=== PATIENT | male | born 1945 | race Caucasian/White ===

== ENCOUNTER → 2016-06-18 | Outpatient (CLI) | payer OTHER ==
[~2016-06-18] MED LIST: AMLO-114 PO; ASCO10003 PO; ASPI81TA28 PO; CHOL1TAB46 PO; ENAL1TAB31 PO; FIBETAB2 PO; FINA5TAB PO; HYDR25TA4 PO; MULT-506 PO; POTA1TAB PO; TERA1CAP63 PO; VITA400C15 PO; ZNTT/150 PO
[2016-06-18 10:22] LABS: CHOLESTEROL/HDL RATIO 1.5
== END | disposition home or self-care (01) ==
LOC: C.LAB1850 08:42
PROVIDERS: ATTEND Internal Medicine
DX: I25.10 Atherosclerotic heart disease of native coronary artery without angina pectoris (principal)

== ENCOUNTER → 2016-12-16 | Outpatient (CLI) | payer OTHER ==
[2016-12-16 10:58] LABS: ALT/SGPT 19 U/L (12-78); AST/SGOT 21 U/L (15-37); BLOOD UREA NITROGEN 18 mg/dl (7-18); BUN/CREATININE RATIO 18.7 (10-20); CALCIUM 8.8 mg/dl (8.5-10.1); CARBON DIOXIDE 28 mmol/L (21-32); CHLORIDE 105 mmol/L (98-107); CREATININE 0.96 mg/dl (0.60-1.40); GLUCOSE 92 mg/dl (70-99); POTASSIUM 3.6 mmol/L (3.5-5.1); SODIUM 139 mmol/L (136-145)
[2016-12-16 11:03] LABS: CHOLESTEROL 140 mg/dl (0-200); CHOLESTEROL/HDL RATIO 1.6; HDL CHOLESTEROL 90 mg/dl; LDL CHOLESTEROL CALCULATED 43 mg/dl; PROSTATE SPECIFIC ANTIGEN 0.363 ng/ml (0.000-4.000); TRIGLYCERIDES 36 mg/dl (0-150); VERY LOW DENSITY LIPOPROT CALC 7 mg/dl
== END | disposition home or self-care (01) ==
LOC: C.LAB1850 09:31
PROVIDERS: ATTEND Internal Medicine
DX: N40.0 Benign prostatic hyperplasia without lower urinary tract symptoms (principal); I25.10 Atherosclerotic heart disease of native coronary artery without angina pectoris; I10 Essential (primary) hypertension; D49.59 Neoplasm of unspecified behavior of other genitourinary organ

== ENCOUNTER → 2017-02-08 | Outpatient (CLI) | payer OTHER ==
[2017-02-08 15:12] LABS: LYME DISEASE AB IGG NEG (NEG); LYME DISEASE AB IGM NEG (NEG)
== END | disposition home or self-care (01) ==
LOC: C.LAB1850 12:51
PROVIDERS: ATTEND Internal Medicine
DX: T14.8XXA Other injury of unspecified body region, initial encounter (principal); W57.XXXA Bitten or stung by nonvenomous insect and other nonvenomous arthropods, initial encounter

== ENCOUNTER → 2017-06-24 | Outpatient (CLI) | payer OTHER ==
[~2017-06-24] MED LIST changes: +RANI150T85 PO; -ZNTT/150 PO
[2017-06-24 12:24] LABS: HEMATOCRIT 38.3 % (42-52); HEMOGLOBIN 12.8 g/dL (14.0-18.0); MEAN CELL VOLUME 86.8 fL (80-100); MEAN CORPUSCULAR HGB CONC 33.4 g/dl (32-36); MEAN PLATELET VOLUME 9.4 fL (7.4-10.4); PLATELET COUNT 233 K/uL (130-400); RED CELL DISTRIBUTION WIDTH CV 13.8 % (11.5-14.5); RED CELL DISTRIBUTION WIDTH SD 44.2 fL (36.4-46.3); WHITE BLOOD COUNT 3.81 K/uL (4.8-10.8)
[2017-06-24 12:45] LABS: ALT/SGPT 23 U/L (12-78); AST/SGOT 28 U/L (15-37); BLOOD UREA NITROGEN 31 mg/dl (7-18); CALCIUM 8.9 mg/dl (8.5-10.1); CARBON DIOXIDE 25 mmol/L (21-32); CREATININE 1.07 mg/dl (0.60-1.40); GLUCOSE 94 mg/dl (70-99); POTASSIUM 3.8 mmol/L (3.5-5.1); SODIUM 137 mmol/L (136-145)
[2017-06-24 12:50] LABS: CHOLESTEROL 146 mg/dl (0-200); LDL CHOLESTEROL CALCULATED 56 mg/dl
== END | disposition home or self-care (01) ==
LOC: C.LAB1850 09:54
PROVIDERS: ATTEND Internal Medicine
DX: E78.5 Hyperlipidemia, unspecified (principal); D64.9 Anemia, unspecified